=== PATIENT | female | born 1975 | race Caucasian/White ===

== ENCOUNTER 2016-12-18 11:25 | Observation (INO) | payer OTHER ==
--- NOTE | ~2016-12-18 | OP ---
Record Of Operation [facility] [address] [place]. [address] NAME: MARISOL MCCOY : 73 STATUS : ADM IN PAT#: [id number] AGE: 41 ADM/REG DATE : 12/18/16 MR#: [id number] REPORT SERV DATE: 12/19/16 DICTATED BY: EMERY DU DATE: 12/18/16 REPORT STATUS : Draft TRANSCRIBED BY: MODL DATE: 12/18/16 DATE OF PROCEDURE: 12/18/2016 ATTENDING SURGEON: Emery Du MD RESIDENT: Kyle Garcia MD PREOPERATIVE DIAGNOSIS: Acute appendicitis. POSTOPERATIVE DIAGNOSIS: Acute appendicitis. ANESTHESIA: Local and general endotracheal. INDICATIONS: The patient is a 41-year-old female who presented with 24 hours of acute onset of right lower quadrant abdominal pain. Workup including history, physical, imaging, and laboratory work were consistent with acute appendicitis. After discussion with the patient and the patient's family, it was decided to proceed with laparoscopic possible open appendectomy. DESCRIPTION OF PROCEDURE: After informed consent had been obtained, the patient was properly identified, she was brought back to the operative suite and placed in supine position. After adequate general endotracheal anesthesia had been achieved, the patient's abdomen was prepped and draped in the usual sterile fashion. Brief time-out was then performed, in which the patient was again identified, procedure noted, allergies and perioperative antibiotics noted. Local anesthetic was infused below the umbilicus. Skin hooks were used to grasp the lateral edges of the umbilicus and elevated. A scalpel was used to make a vertical incision through the midpoint of the umbilicus. Bovie cautery was used to dissect down through the subcutaneous tissues. Anterior fascia was then grasped with hemostat and elevated in the operative field. Bovie cautery was used to dissect through this layer, followed by Fartun clamp, which was used to bluntly enter the abdomen. S-retractor was placed within the incision and elevated the anterior abdominal wall. A 12-mm trocar was then placed through the incision into the abdomen, which was insufflated with CO2. After adequate insufflation, laparoscope was placed within the abdomen and all contents were reviewed. There were no injuries or complications from initial injury noted. Next, two 5 mm trocars were placed under direct visualization, one in the right mid abdomen and one in the suprapubic area. The patient was then positioned in reverse Trendelenburg with a tilt to her left. Two laparoscopic Prestige graspers were used to sweep the small intestine from the right lower quadrant. An inflamed dilated appendix was readily visible in the right lower quadrant. Some small adhesions were bluntly broken apart. Appendix was then grasped near its tip and [place] dissector was used to create a window at its base. Laparoscope was exchanged for a 5-mm camera and laparoscopic stapler with blue tissue load was used to transect the appendix at its base. Good hemostasis was observed and no spillage of stool was observed. Next, the laparoscopic stapler with a vascular load was used to transect the appendiceal mesentery. Record Of Operation [facility] [address] [facility] [place]. [address] NAME: MARISOL MCCOY : 73 STATUS : ADM IN [facility]#: [id number] AGE: 41 ADM/REG DATE : 12/18/16 MR#: [id number] REPORT SERV DATE: 12/19/16 DICTATED BY: EMERY DU DATE: 12/18/16 REPORT STATUS : Draft TRANSCRIBED BY: JORDAN DATE: 12/18/16 Good hemostasis was observed. The small remaining attachments were taken down with laparoscopic scissors. The appendix was then placed within the laparoscopic retrieval bag, which was closed and temporarily secured within the abdomen. Attention was then returned to the dissection bed, which was suctioned dry, and again, there was good hemostasis at all staple lines. Two 5 mm trocars were then removed under direct visualization with good hemostasis. The appendix was then removed from the umbilical trocar site intact in a retrieval bag. It was passed off as a specimen. Excess CO2 was then evacuated from the abdomen. Fascia at the umbilical site was reapproximated with an 0 Vicryl suture in a [id number] fashion. Skin at all incisions was then reapproximated with interrupted Monocryl. All incisions were clean, dry, and had dressings of Band-Aids applied. The patient was then awoken without difficulty from the procedure and taken to the recovery room in stable condition. COMPLICATIONS: None. ESTIMATED BLOOD LOSS: 5 mL. FLUIDS: 700 mL of crystalloid. SPECIMENS: Appendix. DRAINS: None. MEME/JORDAN Emery Du MD / [id number] CC: MD LAUREN Park LEAH HARRIS
--- NOTE | ~2016-12-18 | HP ---
History And Physical [place] [id number] [facility] [place]. [address] NAME: MARISOL MCCOY : 73 STATUS : ADM IN [facility]#: [id number] AGE: 41 ADM/REG DATE : 12/18/16 MR#: [id number] REPORT SERV DATE: 12/19/16 DICTATED BY: EMERY DU DATE: 12/18/16 REPORT STATUS : Draft TRANSCRIBED BY: MODL DATE: 12/18/16 DATE OF ADMISSION: 12/18/2016 SERVICE: General Surgery. RESIDENT: Dr. Kyle Garcia. CHIEF COMPLAINT: Abdominal pain. HISTORY OF PRESENT ILLNESS: This is a 41-year-old female with a history of endometriosis and diverticulitis, who presents with 24 hours of right lower quadrant pain. The patient says the pain started acutely with no preceding event. It was generalized over her entire right lower quadrant but now is focal in one position, has had associated fevers. Denies chills. Denies nausea, vomiting, or diarrhea. Denies any changes to her bladder habits or dysuria. She says she has never had pain like this before, although her pain with diverticulitis was similar but on the left side. Of note, the patient was in the hospital the day before for a planned treadmill stress test due to some subacute chest pain. The patient was able to complete the test without difficulty. There is no official read on the test yet. She denies any current chest pain, shortness of breath, weakness, or any other generalized symptoms. Also of note, the patient has had some chronic cervical lymphadenopathy since this past July. Also had intermittent left axillary lymphadenopathy. She is due for a scheduled lymph node biopsy in the near future. Denies any weight loss. Denies any inguinal lymphadenopathy. 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 PAST SURGICAL HISTORY: Left breast biopsy, cholecystectomy, hysterectomy. FAMILY HISTORY: Coronary artery disease, colon cancer, breast cancer, diverticulitis. SOCIAL HISTORY: Denies any alcohol, tobacco, or illicit drug use. HOME MEDICATIONS: Home medication list reviewed and is on the chart. Please refer to the electronic medical reconciliation for full medication list. ALLERGIES: LEVAQUIN CAUSES TONGUE EDEMA. REVIEW OF SYSTEMS: Pertinent positives and negatives as above per the HPI. Full 12-point review of systems was completed and is otherwise negative. PHYSICAL EXAMINATION: VITAL SIGNS: Temperature 98.1, heart rate 81, blood pressure 118/69, respirations 16, breathing 94% on room air. GENERAL: This is an adult white female, in no acute distress. She is alert and oriented x3. History And Physical [address] [place]. [address] NAME: MARISOL MCCOY : 73 STATUS : ADM IN [facility]#: [id number] AGE: 41 ADM/REG DATE : 12/18/16 MR#: [id number] REPORT SERV DATE: 12/19/16 DICTATED BY: EMERY DU SRINIVASA DATE: 12/18/16 REPORT STATUS : Draft TRANSCRIBED BY: JORDAN DATE: 12/18/16 She is nontoxic-appearing. CARDIOVASCULAR: Regular rate and rhythm with a systolic murmur. PULMONARY: Clear to auscultation bilaterally. ABDOMEN: Abdomen is soft, nondistended. Focally tender to palpation at the right lower quadrant at McBurney's point. There is rebound. There is no guarding. There is no diffuse peritonitis. There are no masses palpable. EXTREMITIES: The patient moves all extremities equally. Does have tenderness at her left heel which is chronic and has palpable left cervical lymphadenopathy along the posterior chain. There is no noted clavicular or axillary nodes that are palpable at this time. No skin changes noted. LABORATORY DATA: White count 11.2 with a left shift. Hematocrit 39.5, platelets 286. Renal panel is within normal limits. LFTs are within normal limits. Lipase is normal at 120. Urinalysis was negative, otherwise, besides some gross blood. CT scan of the abdomen and pelvis is consistent with acute appendicitis. ASSESSMENT AND PLAN: This 41-year-old female with acute appendicitis. 1. We will plan to go to the operating room for laparoscopic possible open appendectomy. Discussed with the patient and patient's family the risks, benefits, details, and alternatives of the procedure. All questions were answered. 2. Keep n.p.o., continue IV fluids, and continue IV antibiotics. 3. Discussed with the patient need for a colonoscopy. Given her family history and history of diverticulitis, this is to be done as an outpatient in the future. MEME/JORDAN Emery Du MD / [id number] CC: MD LAUREN Park LEAH POST
[2016-12-18 11:03] LABS: ASCORBIC ACID (UR NOT ORDER) 20 (NEG); BILIRUBIN, URINE NEGATIVE (NEG); ER URINALYSIS TAT 0 Hrs 15 Mins; KETONE, URINE NEGATIVE (NEG); LEUKOCYTE ESTERASE(NOT OR NEG (NEG); NITRITE (URINE) NEG (NEG); WBC (NOT ORDERED) (RFLEX) 2 (0-5)
[2016-12-18 11:21] LABS: ALBUMIN 4.1 G/DL (3.5-5.0); ALKALINE PHOSPHATASE 102 U/L (45-117); BUN (BLOOD UREA NITROGEN) 15 MG/DL (6-23); CALCIUM, SERUM 9.5 MG/DL (8.5-10.4); CHLORIDE, SERUM 107 MMOL/L (96-112); CO2 (CARBON DIOXIDE) 29 MMOL/L (24-34); CREATININE 0.87 MG/DL (0.55-1.02); GFR AFRICAN AMERICAN 95 ML/MIN (>=60); GFR NON AFRICAN AMERICAN 82 ML/MIN (>=60); GLOBULIN 4.2 G/DL (2.5-4.1); GLUCOSE, SERUM 98 MG/DL (60-99); POTASSIUM, SERUM 3.7 MMOL/L (3.5-5.3); SGOT(AST) 11 U/L (5-40); SGPT(ALT) 21 U/L (5-65); SODIUM, SERUM 140 MMOL/L (135-148); TOTAL BILIRUBIN 0.4 MG/DL (0-1.2); TOTAL PROTEIN 8.3 G/DL (6.0-8.5)
[2016-12-18 11:54] LABS: BASOPHILS 0.4 %; BASOPHILS ABSOLUTE 0.04 10/3/uL (0.0-0.16); EOSINOPHILS 1.2 %; EOSINOPHILS ABSOLUTE 0.13 10/3/uL (0.0-0.53); HEMATOCRIT 39.5 % (36.0-48.0); HEMOGLOBIN 13.1 g/dL (12.0-16.0); IMMATURE GRANULOCYTES 0.2 %; IMMATURE GRANULOCYTES ABSOLUTE 0.02 10/3/uL (0.0-0.11); LYMPHOCYTES 20.7 %; LYMPHOCYTES ABSOLUTE 2.31 10/3/uL (0.67-4.30); MEAN CORPUS HGB CONC 33.2 g/dL (32.0-36.0); MEAN CORPUSCULAR HEMOGLOB 29.6 pg (26.0-34.0); MEAN CORPUSCULAR VOLUME 89.4 fL (80-100); MEAN PLATELET VOLUME 9.6 fL (9.2-13.0); MONOCYTES 4.9 %; MONOCYTES ABSOLUTE 0.55 10/3/uL (0.21-1.20); NEUTROPHILS 72.6 %; NEUTROPHILS ABSOLUTE 8.12 10/3/uL (2.02-8.40); PLATELET COUNT 286 10/3/uL (150-400); RBC DISTRIBUTION WIDTH 13.6 % (12.0-16.0); RED CELL COUNT 4.42 10/6/uL (4.0-5.6); WHITE BLOOD CELLS 11.2 10/3/uL (4.5-10.5)
[2016-12-18 11:55] LABS: MANUAL DIFF NO %
[2016-12-18] MEDS ORDERED: NEUR300 PO (12:46)
[2016-12-18] MEDS ORDERED: ULTRAM50 PO (12:47)
[2016-12-18] MEDS ORDERED: COZ50 PO (12:48)
[2016-12-18] MEDS ORDERED: AUG875 PO (12:50)
[2016-12-18] MEDS ORDERED: FLEX PO (12:51)
[2016-12-18] MEDS ORDERED: INDO50 PO (12:52)
[2016-12-18] MEDS ORDERED: VALISONE OINT 015 GM TOP (12:58)
[2016-12-19] MEDS ORDERED: PCET PO (17:44)
== END 2016-12-19 19:00 | disposition home or self-care (01) ==
LOC: ER 11:25 → 5SO 13:25
PROVIDERS: Physician Assistant; Surgery
PROC: 0DTJ4ZZ Resection of Appendix, Percutaneous Endoscopic Approach (ICD-10-PCS; principal; 2016-12-18 20:15)
DX: K35.3 Acute appendicitis with localized peritonitis (principal); I10 Essential (primary) hypertension; G62.9 Polyneuropathy, unspecified; Z90.49 Acquired absence of other specified parts of digestive tract; Z90.710 Acquired absence of both cervix and uterus; Z98.890 Other specified postprocedural states; Z88.8 Allergy status to other drugs, medicaments and biological substances; R07.9 Chest pain, unspecified; M25.512 Pain in left shoulder
CPT/HCPCS: 74176; 80053; 81001; 83690; 85025; 88304; 93005; 93017; 93350; 96365; 96372; 96374; 96375; 96376; 99285; A9270-GY; G0378; J1170; J2250; J2270; J2405; J2543; J2710; J3010